=== PATIENT | female | born 1990 | race Two or more races ===

== ENCOUNTER 2022-04-04 18:44 | Emergency (ER) | payer SELFPAY ==
[~2022-04-04] VITALS: Ht 165.1 cm; Wt 67.8 kg
[2022-04-04 19:13] VITALS: BP 126/67
[2022-04-04 21:07] LABS: Urine Amorphous Crystal FEW /hpf (None Seen); Urine Bacteria MOD /hpf (None Seen); Urine Blood Negative /uL (Negative); Urine Mucus FEW (None Seen); Urine WBC 14 /hpf (0 - 5)
[2022-04-04] MEDS ORDERED: NITR-52 PO (23:00)
== END 2022-04-04 23:06 | disposition home or self-care (01) ==
LOC: ER 18:44
DX: N39.0 Urinary tract infection, site not specified (principal)
CPT/HCPCS: 81001